=== PATIENT | male | born 1935 | race Caucasian/White ===

== ENCOUNTER 2021-03-10 14:34 | Inpatient (IN) | payer MEDICARE ==
[~2021-03-10] VITALS: Ht 167.6 cm; Wt 68.0 kg
[~2021-03-10 14:34] MED LIST: COREG 3.1253.125 MG; HYDROCODON-ACE1 EA10; LIPITOR80 MG; PRINIVIL10 MG; ULTRAM50 MG; ZANAFLEX4 MG
[2021-03-10 15:39] LABS: EOSINOPHILS 3.7 % (0-7); HEMATOCRIT 28.8 % (42.0-54.0); HEMOGLOBIN 9.8 g/dL (13.5-17.5); LYMPHOCYTES 33.6 % (15-50); MCH 31.3 pg (26.0-34.0); MCV 92.3 fL (80.0-100.0); MEAN PLATELET VOLUME 7.6 fL (7.4-10.4); MONOCYTES 10.6 % (2-11); NEUTROPHILS 51.1 % (40-80); PLATELET COUNT 227 10x3/uL (130-400); RBC 3.12 10x6/uL (4.20-6.10); RDW 14.2 % (11.5-14.5); WBC 3.4 10x3/uL (4.8-10.8)
[2021-03-10 15:45] LABS: ANION GAP 7.3 mmol/L (8-16); CARBON DIOXIDE 32.1 mmol/L (21.0-32.0); CREATININE - SERUM 1.2 mg/dL (0.6-1.3); POTASSIUM - SERUM 3.4 mmol/L (3.5-5.1)
[2021-03-10 15:51] LABS: ALBUMIN 2.7 g/dL (3.4-5.0); BILIRUBIN - TOTAL 0.74 mg/dL (0.2-1.3); PROTEIN - SERUM 7.4 g/dL (6.4-8.2)
[2021-03-10 16:37] VITALS: BP 163/58
[2021-03-10 18:52] LABS: AMYLASE - SERUM 46 U/L (25-115); LIPASE 112 U/L (73-393); TROPONIN-I < 0.017 ng/mL (0.000-0.060)
[2021-03-10 20:38] VITALS: BP 145/65
[2021-03-10 21:20] LABS: BILIRUBIN NEGATIVE (NEGATIVE); KETONE NEGATIVE mg/dL (< 1+); NITRITE NEGATIVE (NEGATIVE); UROBILINOGEN NORMAL mg/dL (< 2); WHITE CELLS - URINE <1 HPF (0-1)
--- NOTE | 2021-03-10 22:08 | NUR ---
ROOM CLEAN. PT TRANSPORTED TO FLOOR BY COURRIER.
[2021-03-10 22:30] VITALS: BP 154/64
[2021-03-10 22:48] VITALS: BMI 24.2
[2021-03-11 06:04] LABS: BASOPHILS 0.7 % (0-2); EOSINOPHILS 3.5 % (0-7); HEMATOCRIT 28.4 % (42.0-54.0); HEMOGLOBIN 9.7 g/dL (13.5-17.5); LYMPHOCYTES 27.8 % (15-50); MCH 31.7 pg (26.0-34.0); MCHC 34.2 g/dL (31.0-37.0); MCV 92.7 fL (80.0-100.0); MONOCYTES 9.6 % (2-11); NEUTROPHILS 58.4 % (40-80); PLATELET COUNT 203 10x3/uL (130-400); RBC 3.07 10x6/uL (4.20-6.10); RDW 14.6 % (11.5-14.5)
[2021-03-11 06:23] LABS: WBC 4.3 10x3/uL (4.8-10.8)
[2021-03-11 06:34] LABS: ALBUMIN 2.6 g/dL (3.4-5.0); ALKALINE PHOSPHATASE 172 U/L (30-120); ALT (SGPT) 23 U/L (10-68); BILIRUBIN - TOTAL 0.83 mg/dL (0.2-1.3); CALC OSMOLALITY 266 mosm/kg (275-300); CALCIUM 8.1 mg/dL (8.5-10.1); CARBON DIOXIDE 30.1 mmol/L (21.0-32.0); CHLORIDE - SERUM 100 mmol/L (98-107); CKMB 0.5 U/L (0.0-3.6); CREATINE KINASE 29 UL (21-232); CREATININE - SERUM 1.2 mg/dL (0.6-1.3); FERRITIN 798 ng/mL (3-244); GLUCOSE 84 mg/dL (74-106); MAGNESIUM - SERUM 1.7 mg/dL (1.8-2.4); POTASSIUM - SERUM 3.2 mmol/L (3.5-5.1); SODIUM 134 mmol/L (136-145); TROPONIN-I < 0.017 ng/mL (0.000-0.060); UREA NITROGEN 12 mg/dL (7-18); eGFR NON AFRICAN AMERICAN 61 mL/min (90-120)
[2021-03-11 06:36] LABS: LIPASE 65 U/L (73-393)
[2021-03-11 07:21] LABS: APTT 30.5 SECONDS (22.8-39.4); INR 1.24 (0.85-1.17); PROTIME 14.4 SECONDS (11.6-15.0)
[2021-03-11 07:22] LABS: D-DIMER-QUANTITATIVE 0.42 ug/mLFEU (0.20-0.54)
[2021-03-11 07:39] LABS: % SATURATION 36 % (15-55); IRON 55 ug/dl (35-150); TOTAL IRON BIND CAPACITY 149 ug/dl (260-445); UNSAT IRON BIND CAPACITY 94 ug/dl (150-375)
--- NOTE | 2021-03-11 08:12 | NUR ---
PT RESTING IN BED WITH EYES CLOSED. AWAKENS STAFF TOUCHES ARM, PT IS [place] AND WEARS HEARING AIDS, BUT HAS DIFFICULTY UNDERSTANDING STAFF. RESP EVEN AND UNLABORED. DENIES PAIN AT THIS TIME. IV TO RIGHT FOREARM WITH NS @ 100ML/HR INFUSING VIA PUMP. SITE WITHOUT REDNESS OR EDEMA. DENIES FURTHER NEEDS AT THIS TIME. CL WITHIN REACH. ENCOURAGED TO CALL WITH NEEDS. CONTINUE POC
[2021-03-11 08:50] VITALS: BP 119/48
[2021-03-11 12:56] VITALS: BP 156/53
[2021-03-11 16:38] VITALS: BP 125/53
[2021-03-11 20:00] VITALS: BP 124/49
--- NOTE | 2021-03-12 00:18 | NUR ---
REFUSED INFORMATICS EDUCATOR
--- NOTE | 2021-03-12 03:00 | NUR ---
I have reviewed this patient and I concur with the Shift Assessment completed by the Licensed Practical Nurse today this shift.
[2021-03-12 04:00] VITALS: BP 133/50
[2021-03-12 06:25] LABS: BASOPHILS 1.1 % (0-2); EOSINOPHILS 5.3 % (0-7); HEMATOCRIT 24.6 % (42.0-54.0); HEMOGLOBIN 8.4 g/dL (13.5-17.5); LYMPHOCYTES 32.9 % (15-50); MCH 31.5 pg (26.0-34.0); MCV 92.7 fL (80.0-100.0); MEAN PLATELET VOLUME 8.1 fL (7.4-10.4); MONOCYTES 8.9 % (2-11); NEUTROPHILS 51.8 % (40-80); PLATELET COUNT 166 10x3/uL (130-400); RBC 2.66 10x6/uL (4.20-6.10); RDW 14.6 % (11.5-14.5); WBC 3.3 10x3/uL (4.8-10.8)
[2021-03-12 06:49] LABS: ALBUMIN 2.1 g/dL (3.4-5.0); ANION GAP 7.6 mmol/L (8-16); BILIRUBIN - TOTAL 0.82 mg/dL (0.2-1.3); CALCIUM 7.7 mg/dL (8.5-10.1); CARBON DIOXIDE 26.8 mmol/L (21.0-32.0); CREATININE - SERUM 1.2 mg/dL (0.6-1.3); MAGNESIUM - SERUM 1.5 mg/dL (1.8-2.4); POTASSIUM - SERUM 3.4 mmol/L (3.5-5.1); PROTEIN - SERUM 6.1 g/dL (6.4-8.2)
[2021-03-12 09:23] VITALS: BP 157/62
[2021-03-12 12:55] VITALS: BP 114/57
[2021-03-12 13:21] VITALS: Ht 167.6 cm; Wt 68.0 kg
[2021-03-12 16:46] VITALS: BP 158/62
[2021-03-12 22:20] VITALS: BP 153/52
[2021-03-13 00:05] VITALS: BP 140/60
[2021-03-13 04:07] VITALS: BP 145/66
[2021-03-13 07:07] LABS: BASOPHILS 0.8 % (0-2); EOSINOPHILS 4.7 % (0-7); HEMATOCRIT 25.8 % (42.0-54.0); HEMOGLOBIN 8.7 g/dL (13.5-17.5); LYMPHOCYTES 32.5 % (15-50); MCH 31.6 pg (26.0-34.0); MCHC 33.9 g/dL (31.0-37.0); MCV 93.3 fL (80.0-100.0); MEAN PLATELET VOLUME 8.2 fL (7.4-10.4); MONOCYTES 10.1 % (2-11); NEUTROPHILS 51.9 % (40-80); PLATELET COUNT 173 10x3/uL (130-400); RBC 2.77 10x6/uL (4.20-6.10); WBC 3.5 10x3/uL (4.8-10.8)
[2021-03-13 07:15] LABS: ALBUMIN 2.1 g/dL (3.4-5.0); ALKALINE PHOSPHATASE 141 U/L (30-120); ALT (SGPT) 18 U/L (10-68); BILIRUBIN - TOTAL 0.65 mg/dL (0.2-1.3); CALC OSMOLALITY 267 mosm/kg (275-300); CALCIUM 7.8 mg/dL (8.5-10.1); CARBON DIOXIDE 24.2 mmol/L (21.0-32.0); CHLORIDE - SERUM 104 mmol/L (98-107); GLUCOSE 84 mg/dL (74-106); MAGNESIUM - SERUM 1.4 mg/dL (1.8-2.4); POTASSIUM - SERUM 3.2 mmol/L (3.5-5.1); PROTEIN - SERUM 6.2 g/dL (6.4-8.2); SODIUM 135 mmol/L (136-145); UREA NITROGEN 9 mg/dL (7-18); eGFR NON AFRICAN AMERICAN 76 mL/min (90-120)
--- NOTE | 2021-03-13 07:46 | NUR ---
ALERT AND ORIENTED TO SELF ONLY. ASSESSMENT COMPLETE. DENIES NEEDS. BED LOW. BED ALARM ON. CALL BAEZ AND PERSONAL ITEMS IN REACH. WILL CONTINUE TO MONITOR.
[2021-03-13 09:17] VITALS: BP 151/66
--- NOTE | 2021-03-13 11:21 | NUR ---
PATIENT NOT GIVEN FLORAJEN D/T ALREADY GOT FLORASTOR THIS MORNING.
[2021-03-13 12:48] VITALS: BP 147/75
[2021-03-13] MEDS ORDERED: LEVOFLOXACIN500 MG PO (13:32)
[2021-03-13] MEDS ORDERED: FLAGYL500 MG PO (13:33)
[2021-03-13] MEDS ORDERED: FLORAJEN DIGES1 EACH PO (13:33)
--- NOTE | 2021-03-13 14:33 | NUR ---
WALKED 24 FEET MIN ASSIT TO BATHROOM THAN UP TO THE CHAIR
--- NOTE | 2021-03-13 14:40 | NUR ---
OT NOTE: PT COMPLETED SUPINE TO SIT WITH CGA-MIN A. PT COMPLETED ADL MOBILITY WITH MIN A. PT REQUIRED MAX A WITH LB HYGIENE. PT DONNED BRIEF WITH MOD A. PT COMPLETED FACE HYGIENE WITH SETUP AT EOB WITH SBA. PT COMPLETED HAND HYGIENE AT SINK LEVEL WITH CGA. [id number] DI CHU COTA
--- NOTE | 2021-03-13 15:06 | MORECARE ---
CASE MANAGEMENT DISCHARGE SUMMARY PATIENT: UMAIR YEH UNIT: [id number] ADM DATE: 03/10/21 AGE: 85 : 36 SEX: M ROOM/BED: D.2202 AUTHOR: LUIS FERNANDO,DOC PHYSICIAN: REFERRING PHYSICIAN: LENORE ESQUEDA MD DATE OF SERVICE: 03/13/21 Case Management Discharge Planning Summary COMMENTS ENTERED DATE: 03/13/21 14:58 CT COMMENT TYPE: Discharge Planning REVIEWER: Cristina Aldana CM met with patient at bedside after obtaining verbal consent. CM discussed availability / needs of home health, REHAB and medical equipment. Patient extremely hard of hearing. I spoke with his daughter Sadie and he lives with them. She states he could use home health and [facility]. IMM and chandler signed and placed on chart. Patient plans to dc to home today. CM to follow and assist as needed. DCP REVIEW SUMMARY ANTICIPATED D/C DATE: EXPECTED LOS : CASE STATUS: DCP Initiated INITIAL REVIEW: 03/10/2021 INITIAL REVIEWER: Cristina Aldana FINAL DISCHARGE DISPOSITION: : FINAL REVIEWER: FINAL REVIEW DATE: DCP Focus Questions & Answers DCP Screen QUESTION: ANSWER High Risk Factors: : Poor health literacy DCP Evaluation QUESTION: ANSWER Patient's ability to cope with chronic illness : d. No chronic illness Would patient like to participate in any Care Coordination programs (if applicable): : Not applicable Mental health screen: : No mental health history DCP Re-evaluation QUESTION: ANSWER Would patient like to participate in any Care Coordination programs (if applicable): : Not applicable PROVIDER NETWORKING REVIEW DATE: 03/13/2021 SERVICE TYPE: Home Health Care REVIEWER: Cristina Aldana PATIENT: UMAIR YEH ENCOUNTER: [id number] MEDICAL RECORD#: [id number] ADMISSION DATE: 03/10/2021 DISCHARGE DATE: ATTENDING MD: : AGE: 85 MARITAL STATUS: W DC PLAN ID: [id number] FACILITY: [facility] PRINTED ON: 03/13/21 15:05 CT All edits/amendments must be made on the electronic document DICTATION DATE: 03/13/21 1505 IT NETWORK ARCHITECT: BLANCA 03/13/21 1505 RPT#: [id number] DC DATE: STATUS: ADM IN [facility] [address] [place] [address] END OF REPORT
--- NOTE | 2021-03-13 15:07 | NUR ---
DC EDUCATION PROVIDED BOTH WRITTEN AND VERBAL TO PATIENT AND SON. SON SIGNED DC PAPERWORK D/T PATIENT CONFUSED. IV REMOVED FROM RFA WITH TIP INTACT. PATIENT DC HOME WITH SON AND DAUGHTER WITH ALL BELONGINGS.
--- NOTE | 2021-03-13 15:18 | MORECARE ---
CASE MANAGEMENT DISCHARGE SUMMARY PATIENT: UMAIR YEH UNIT: [id number] ADM DATE: 03/10/21 AGE: 85 : 36 SEX: M ROOM/BED: D.2202 AUTHOR: LUIS FERNANDO,DOC PHYSICIAN: REFERRING PHYSICIAN: LENORE ESQUEDA MD DATE OF SERVICE: 03/13/21 Case Management Discharge Planning Summary COMMENTS ENTERED DATE: 03/13/21 14:58 CT COMMENT TYPE: Discharge Planning REVIEWER: Cristina Aldana CM met with patient at bedside after obtaining verbal consent. CM discussed availability / needs of home health, REHAB and medical equipment. Patient extremely hard of hearing. I spoke with his daughter Sadie and he lives with them. She states he could use home health and would [facility]. IMM and chandler signed and placed on chart. Patient plans to dc to home today. CM to follow and assist as needed. DCP REVIEW SUMMARY ANTICIPATED D/C DATE: EXPECTED LOS : CASE STATUS: DCP Initiated INITIAL REVIEW: 03/10/2021 INITIAL REVIEWER: Cristina Aldana FINAL DISCHARGE DISPOSITION: : FINAL REVIEWER: FINAL REVIEW DATE: DCP Focus Questions & Answers DCP Screen QUESTION: ANSWER High Risk Factors: : Poor health literacy DCP Evaluation QUESTION: ANSWER Patient's ability to cope with chronic illness : d. No chronic illness Would patient like to participate in any Care Coordination programs (if applicable): : Not applicable Mental health screen: : No mental health history DCP Re-evaluation QUESTION: ANSWER Would patient like to participate in any Care Coordination programs (if applicable): : Not applicable PROVIDER NETWORKING REVIEW DATE: 03/13/2021 SERVICE TYPE: Home Health Care REVIEWER: Cristina Aldana PATIENT: UMAIR YEH ENCOUNTER: [id number] MEDICAL RECORD#: [id number] ADMISSION DATE: 03/10/2021 DISCHARGE DATE: 03/13/2021 ATTENDING MD: : 1935-Uri AGE: 85 MARITAL STATUS: W DC PLAN ID: [id number] FACILITY: [facility] PRINTED ON: 03/13/21 15:18 CT All edits/amendments must be made on the electronic document DICTATION DATE: 03/13/21 1518 LPN HOME HEALTH: BLANCA 03/13/21 1518 RPT#: [id number] DC DATE:03/13/21 STATUS: DIS IN [facility] [address] [place] [address] END OF REPORT
--- NOTE | 2021-03-13 16:16 | MORECARE ---
CASE MANAGEMENT DISCHARGE SUMMARY PATIENT: UMAIR YEH UNIT: [id number] ADM DATE: 03/10/21 AGE: 85 : 36 SEX: M ROOM/BED: D.2202 AUTHOR: LUIS FERNANDO,DOC PHYSICIAN: REFERRING PHYSICIAN: LENORE ESQUEDA MD DATE OF SERVICE: 03/13/21 Case Management Discharge Planning Summary COMMENTS ENTERED DATE: 03/13/21 14:58 CT COMMENT TYPE: Discharge Planning REVIEWER: Cristina Aldana CM met with patient at bedside after obtaining verbal consent. CM discussed availability / needs of home health, REHAB and medical equipment. Patient extremely hard of hearing. I spoke with his daughter Sadie and he lives with them. She states he could use home health and would like [facility]. IMM and chandler signed and placed on chart. Patient plans to dc to home today. CM to follow and assist as needed. DCP REVIEW SUMMARY ANTICIPATED D/C DATE: EXPECTED LOS : CASE STATUS: DCP Complete INITIAL REVIEW: 03/10/2021 INITIAL REVIEWER: Cristina Aldana FINAL DISCHARGE DISPOSITION: : FINAL REVIEWER: FINAL REVIEW DATE: DCP Focus Questions & Answers DCP Screen QUESTION: ANSWER High Risk Factors: : Poor health literacy DCP Evaluation QUESTION: ANSWER Patient's ability to cope with chronic illness : d. No chronic illness Would patient like to participate in any Care Coordination programs (if applicable): : Not applicable Mental health screen: : No mental health history DCP Re-evaluation QUESTION: ANSWER Would patient like to participate in any Care Coordination programs (if applicable): : Not applicable PROVIDER NETWORKING REVIEW DATE: 03/13/2021 SERVICE TYPE: Home Health Care REVIEWER: Cristina Aldana PATIENT: UMAIR YEH ENCOUNTER: [id number] MEDICAL RECORD#: [id number] ADMISSION DATE: 03/10/2021 DISCHARGE DATE: 03/13/2021 ATTENDING MD: : 1935-Uri AGE: 85 MARITAL STATUS: W DC PLAN ID: [id number] FACILITY: [facility] PRINTED ON: 03/13/21 16:16 CT All edits/amendments must be made on the electronic document DICTATION DATE: 03/13/211615 LIFT DRIVER: BLANCA 03/13/211615 RPT#: [id number] DC DATE:03/13/21 STATUS: DIS IN [facility] [address] [facility] [place] [address] END OF REPORT
--- NOTE | 2021-03-15 15:21 | MORECARE ---
CASE MANAGEMENT DISCHARGE SUMMARY PATIENT: UMAIR YEH UNIT: [id number] ADM DATE: 03/10/21 AGE: 85 : 36 SEX: M ROOM/BED: D.2202 AUTHOR: LUIS FERNANDO,DOC PHYSICIAN: REFERRING PHYSICIAN: LENORE ESQUEDA MD DATE OF SERVICE: 03/15/21 Case Management Discharge Planning Summary COMMENTS ENTERED DATE: 03/13/21 14:58 CT COMMENT TYPE: Discharge Planning REVIEWER: Cristina Aldana CM met with patient at bedside after obtaining verbal consent. CM discussed availability / needs of home health, REHAB and medical equipment. Patient extremely hard of hearing. I spoke with his daughter Sadie and he lives with them. She states he could use home health and would [facility]. IMM and chandler signed and placed on chart. Patient plans to dc to home today. CM to follow and assist as needed. DCP REVIEW SUMMARY ANTICIPATED D/C DATE: EXPECTED LOS : CASE STATUS: DCP Complete INITIAL REVIEW: 03/10/2021 INITIAL REVIEWER: Cristina Aldana FINAL DISCHARGE DISPOSITION: : FINAL REVIEWER: FINAL REVIEW DATE: DCP Focus Questions & Answers DCP Screen QUESTION: ANSWER High Risk Factors: : Poor health literacy DCP Evaluation QUESTION: ANSWER Patient's ability to cope with chronic illness : d. No chronic illness Would patient like to participate in any Care Coordination programs (if applicable): : Not applicable Mental health screen: : No mental health history DCP Re-evaluation QUESTION: ANSWER Would patient like to participate in any Care Coordination programs (if applicable): : Not applicable PROVIDER NETWORKING REVIEW DATE: 03/13/2021 SERVICE TYPE: Home Health Care REVIEWER: Cristina Aldana PATIENT: UMAIR YEH ENCOUNTER: [id number] MEDICAL RECORD#: [id number] ADMISSION DATE: 03/10/2021 DISCHARGE DATE: 03/13/2021 ATTENDING MD: : 1935-Uri AGE: 85 MARITAL STATUS: W DC PLAN ID: [id number] FACILITY: [facility] PRINTED ON: 03/15/21 15:20 CT All edits/amendments must be made on the electronic document DICTATION DATE: 03/15/21 152 WASH TEST CHECKER: BLANCA 03/15/21 1520 RPT#: [id number] DC DATE:03/13/21 STATUS: DIS IN [facility] [address] [place] [address] END OF REPORT
== END 2021-03-13 15:08 | disposition home health service (06) | DRG 392 ==
LOC: D.ER 14:34 → D.EDHOLD 19:37 → D.MS 19:37
PROVIDERS: Family Medicine; ADMIT Family Medicine; ATTEND Family Medicine
DX: K52.9 Noninfective gastroenteritis and colitis, unspecified (principal); E87.1 Hypo-osmolality and hyponatremia; E87.6 Hypokalemia; D64.9 Anemia, unspecified; E83.42 Hypomagnesemia; I25.10 Atherosclerotic heart disease of native coronary artery without angina pectoris; Z95.5 Presence of coronary angioplasty implant and graft; H91.90 Unspecified hearing loss, unspecified ear

== ENCOUNTER 2021-03-16 21:24 | Emergency (ER) | payer MEDICARE ==
[~2021-03-16] VITALS: Ht 167.6 cm; Wt 63.6 kg
[~2021-03-16 21:24] MED LIST changes: +FLAGYL500 MG PO; +FLORAJEN DIGES1 EACH PO; +LEVOFLOXACIN500 MG PO
[2021-03-16 21:26] VITALS: BP 156/53; Ht 167.6 cm; Wt 63.6 kg
[2021-03-16 21:58] LABS: BASOPHILS 1.1 % (0-2); EOSINOPHILS 6.7 % (0-7); HEMATOCRIT 25.5 % (42.0-54.0); HEMOGLOBIN 8.7 g/dL (13.5-17.5); LYMPHOCYTES 34.3 % (15-50); MCH 31.8 pg (26.0-34.0); MCHC 34.2 g/dL (31.0-37.0); MCV 92.9 fL (80.0-100.0); MEAN PLATELET VOLUME 7.3 fL (7.4-10.4); MONOCYTES 12.5 % (2-11); NEUTROPHILS 45.4 % (40-80); PLATELET COUNT 179 10x3/uL (130-400); RBC 2.74 10x6/uL (4.20-6.10); WBC 3.6 10x3/uL (4.8-10.8)
[2021-03-16 22:33] LABS: ALBUMIN 2.5 g/dL (3.4-5.0); ALKALINE PHOSPHATASE 126 U/L (30-120); ALT (SGPT) 21 U/L (10-68); BILIRUBIN - TOTAL 0.53 mg/dL (0.2-1.3); CALC OSMOLALITY 266 mosm/kg (275-300); CALCIUM 7.6 mg/dL (8.5-10.1); CARBON DIOXIDE 25.3 mmol/L (21.0-32.0); CHLORIDE - SERUM 101 mmol/L (98-107); CKMB 1.5 U/L (0.0-3.6); CREATINE KINASE 64 UL (21-232); CREATININE - SERUM 1.2 mg/dL (0.6-1.3); GLUCOSE 92 mg/dL (74-106); POTASSIUM - SERUM 3.3 mmol/L (3.5-5.1); PRO BNP 3427 pg/mL (0-450); PROTEIN - SERUM 6.4 g/dL (6.4-8.2); SODIUM 134 mmol/L (136-145); UREA NITROGEN 9 mg/dL (7-18); eGFR NON AFRICAN AMERICAN 61 mL/min (90-120)
[2021-03-16 22:34] LABS: TROPONIN-I < 0.017 ng/mL (0.000-0.060)
[2021-03-16] MEDS ORDERED: FUROSEMIDE20 MG PO (23:32)
[2021-03-16] MEDS ORDERED: K-DUR20 MEQ PO (23:34)
== END 2021-03-17 00:11 | disposition home or self-care (01) ==
LOC: D.ER 21:24
PROVIDERS: Emergency Medicine
DX: R60.0 Localized edema (principal); R19.7 Diarrhea, unspecified; E87.6 Hypokalemia